=== PATIENT | male | born 1995 | race Caucasian/White ===

== ENCOUNTER 2023-12-10 10:38 | Emergency (ER) | payer MEDICAID ==
[~2023-12-10] VITALS: Ht 162.6 cm; Wt 61.0 kg
[2023-12-10 11:02] VITALS: BP 136/87; PULSE 61; RESP 18; TEMP 98; O2SAT 100
[2023-12-10 11:29] LABS: CHLORIDE 104 mEq/L (98-107); POTASSIUM 3.4 mEq/L (3.5-5.1); SODIUM 139 mEq/L (136-145)
[2023-12-10 11:30] LABS: BASOPHILS % 0.5 % (0.0-2.0); CALCIUM 8.9 mg/dL (8.7-10.4); CARBON DIOXIDE 30 mEq/L (21-32); EOSINOPHILS % 0.9 % (0.0-5.0); HEMATOCRIT. 48.1 % (42.0-52.0); HEMOGLOBIN. 16.2 g/dL (14.0-18.0); LYMPHOCYTES % 12.3 % (20.0-50.0); MEAN CORPUSCULAR HEMOGLOBIN 29.6 pg (28.0-32.0); MEAN CORPUSCULAR HGB CONC 33.7 g/dL (31.0-37.0); MEAN CORPUSCULAR VOLUME 87.8 fL (80.0-94.0); NEUTROPHILS % 80.3 % (40.0-76.0); PLATELET 194 x1000/uL (130-400); RED BLOOD CELL COUNT 5.48 mill/uL (4.7-6.1); RED CELL DISTRIBUTION WIDTH 14.4 % (11.6-14.6); WHITE BLOOD COUNT 17.5 x1000/uL (4.5-11.0)
[2023-12-10 11:35] LABS: CREATININE 0.9 mg/dL (0.6-1.3); GLUCOSE 134 mg/dL (70-105); UREA NITROGEN BLOOD 11 mg/dL (9-23)
[2023-12-10 11:37] LABS: ALANINE AMINOTRANSFERASE 23 IU/L (10-49); ALBUMIN 4.3 g/dL (3.2-4.8); ASPARTATE AMINOTRANSFERASE 28 IU/L (<34); BILIRUBIN DIRECT 0.3 mg/dL (<=3.0); PROTEIN TOTAL 6.9 g/dL (6.0-8.3)
[2023-12-10] MEDS ORDERED: DICYCLOMINE 10 MG/5 ML ORAL SYR PO STA (11:42)
[2023-12-10] MEDS ORDERED: KETOROLAC 60MG/2ML VIAL IM STA (11:42)
[2023-12-10 12:03] LABS: ETHANOL BLOOD < 10 mg/dL (<10)
[2023-12-10] MEDS: ONDANSETRON 4MG ODT PO STA (12:07)
[2023-12-10] MEDS: MAGNESIUM/ALUMINUM HYDROXIDE/SIMETHICONE 30ML UDC PO STA (12:07)
[2023-12-10] MEDS: KETOROLAC 30MG/ML VIAL IM NR (12:07)
[2023-12-10] MEDS: FAMOTIDINE 20MG TABLET PO ONE (12:07)
[2023-12-10] MEDS: DICYCLOMINE HCL 10MG CAPSULE PO NR (12:20)
[2023-12-10 12:57] LABS: CLARITY URINE TURBID (CLEAR); COLOR URINE DARK YELLOW (YELLOW); GLUCOSE URINE NEGATIVE (NEGATIVE); KETONES URINE 1+ (NEGATIVE); LEUKOCYTE ESTERASE URINE TRACE (NEGATIVE); NITRITE URINE NEGATIVE (NEGATIVE); OCCULT BLOOD URINE NEGATIVE (NEGATIVE); PH URINE 7.5 (4.5-8.0); PROTEIN URINE TRACE (NEGATIVE); SPECIFIC GRAVITY URINE 1.027 (1.005-1.030)
[2023-12-10] MEDS: SODIUM CHLORIDE 0.9% 1,000 ML IV ONE (13:16)
[2023-12-10] MEDS: MORPHINE SULFATE 4 MG/ML INJ (FOR IV/IM USE) IV ONE (13:16)
[2023-12-10 13:22] LABS: AMORPHOUS SEDIMENT URINE 2+ /lpf
[2023-12-10 13:23] LABS: MUCUS URINE TRACE /lpf (NONE/TRACE)
[2023-12-10 13:28] LABS: BACTERIA URINE 1+; SQUAMOUS EPITHELIAL CELL URINE NONE SEEN /lpf (RARE/1+)
[2023-12-10 13:29] LABS: RBC URINE NONE SEEN /hpf (0-2); WBC URINE 0-2 /hpf (0-2)
[2023-12-10] MEDS ORDERED: FAMO-135 MT (13:34)
== END 2023-12-10 15:00 | disposition home or self-care (01) ==
LOC: ER 10:38
DX: K29.70 Gastritis, unspecified, without bleeding (principal)
CPT/HCPCS: 80076; 80048; 81003; 80320; 83690; 85025; 36415; 74176; 96361; 96372; 96374; 99285; Q0162; J1885; J2270; J7030; 96360; G0480

== ENCOUNTER 2023-12-12 01:13 | Emergency (ER) | payer MEDICAID ==
[~2023-12-12] VITALS: Ht 167.6 cm; Wt 80.0 kg
[~2023-12-12 01:13] MED LIST: FAMO-135 MT
[2023-12-12 01:25] VITALS: O2SAT 98
[2023-12-12] MEDS: IBUPROFEN 600MG TABLET PO ONE (03:06)
[2023-12-12] MEDS ORDERED: IBUP-2029 MT (03:11)
[2023-12-12 05:52] VITALS: BP 110/66; PULSE 66; RESP 19; TEMP 101.9
== END 2023-12-12 05:35 | disposition home or self-care (01) ==
LOC: ER 01:27
DX: R07.89 Other chest pain (principal)
CPT/HCPCS: 71045; 93005; 99283